=== PATIENT | female | born 1950 | race Caucasian/White ===

== ENCOUNTER 2024-01-21 16:12 | Inpatient (IN) | payer BC ==
[~2024-01-21] VITALS: Ht 157.5 cm; Wt 62.6 kg
[2024-01-21] MEDS: IV NORMAL SALINE 1000 ML BAG IV ONE (16:57)
[2024-01-21 17:19] LABS: BASOPHILS % (AUTO) 0.5 % (0.0-2.0); EOSINOPHILS % (AUTO) 0.1 % (0.0-7.0); HEMATOCRIT 34.7 % (31.2-41.9); HEMOGLOBIN 12.4 g/dL (10.9-14.3); LYMPHOCYTES # (AUTO) 0.2 K/uL (0.8-4.8); LYMPHOCYTES % (AUTO) 3.2 % (20.5-51.5); MEAN CORPUSCULAR HEMOGLOBIN 45.3 uug (24.7-32.8); MEAN CORPUSCULAR HGB CONC 36 g/dL (32.3-35.6); MONOCYTES # (AUTO) 0.7 K/uL (0.1-1.30); MONOCYTES % (AUTO) 12.4 % (0.0-11.0); NEUTROPHILS # (AUTO) 4.8 K/uL (1.8-8.9); NEUTROPHILS % (AUTO) 83.8 % (38.5-71.5); PLATELET COUNT (AUTO) 136 K/uL (179-408); RED BLOOD CELL COUNT(AUTO) 2.74 MIL/uL (3.63-4.92); RED CELL DISTRIBUTION WIDTH 13.9 % (12.3-17.7); WHITE BLOOD COUNT (AUTO) 5.8 K/uL (3.8-11.8)
[2024-01-21 17:25] LABS: DIFFERENTIAL COMMENT 1
[2024-01-21 17:29] LABS: CHLORIDE 83 mmol/L (98-107); POTASSIUM 3.5 mmol/L (3.5-5.1); SODIUM SERUM 119 mmol/L (136-145)
[2024-01-21 17:30] LABS: ALKALINE PHOSPHATASE 74 U/L (50-136); ASPARTATE AMINOTRANSFERASE 103 U/L (15-37); BILIRUBIN,DIRECT 0.6 mg/dL (0.0-0.2); BILIRUBIN,TOTAL 1.4 mg/dL (0.2-1.0); CALCIUM 8.2 mg/dL (8.5-10.1); CARBON DIOXIDE 25 mmol/L (21-32); CREATININE 0.5 mg/dL (0.6-1.3); GLUCOSE 106 mg/dL (74-106); UREA NITROGEN, BLOOD 9 mg/dL (7-18)
[2024-01-21] MEDS: PIPERACILLIN SODIUM/TAZOBACTAM 3.375 G in IV DEXTROSE 5% 50 ML IV ONE (17:30)
[2024-01-21 17:31] LABS: ALANINE AMINOTRANSFERASE 40 U/L (14-59); TOTAL PROTEIN, SERUM 5.7 g/dL (6.4-8.2)
[2024-01-21] MEDS ORDERED: PIPERACILLIN/TAZOBACTAM/D5W 50 ML IV ONE (17:34)
[2024-01-21] MEDS ORDERED: VANCOMYCIN IV 200 ML ONE (17:34)
[2024-01-21] MEDS: VANCOMYCIN IV 1,000 MG in IV DEXTROSE 5% 250 ML IV ONE (18:30)
[2024-01-21 20:30] VITALS: BP 116/65; TEMP 98.3; O2SAT 99
[2024-01-21] MEDS ORDERED: ONDANSETRON 4 MG/2 ML VIAL IV PRN (21:00)
[2024-01-21] MEDS ORDERED: MAGNESIUM HYDROXIDE 30 ML LIQUID UDC PO PRN (21:00)
[2024-01-21] MEDS ORDERED: REMEDY ESSENTIAL ZINC PASTE 113 GM TP PRN (21:00)
[2024-01-21] MEDS: ENOXAPARIN SODIUM 40 MG/0.4 ML DISP.SYRIN SQ SCH (21:47)
[2024-01-21] MEDS: IV NS 1000 ML 1,000 ML IV PRN (21:56)
[2024-01-21] MEDS: ASPIRIN 325 MG TABLET PO SCH (22:54)
[2024-01-22] VITALS: BP 129/48; TEMP 98.3; O2SAT 99
[2024-01-22] MEDS ORDERED: CIPR-262 PO (02:21)
[2024-01-22 03:30] LABS: *BILIRUBIN,URIN NEGATIVE (NEGATIVE); *BLOOD, URINE NEGATIVE (NEGATIVE); *CLARITY,URINE CLEAR (CLEAR); *COLOR,URINE YELLOW (YELLOW); *KETONES,URINE 3+ (NEGATIVE); *PROTEIN,URINE 1+ (NEGATIVE); *UROBILINOGEN,URINE 0.2 E.U./dl (NORMAL); LEUKOCYTE ESTERASE ,URINE NEGATIVE (NEGATIVE); NITRITE, URINE NEGATIVE (NEGATIVE); UGLUCOSE NEGATIVE (NEGATIVE)
[2024-01-22 03:50] LABS: BACTERIA,URINE FEW /HPF (NONE SEEN); RBC,URINE 0-3 /HPF (0-3); SQUAMOUS EPITHELIAL CELL,UR FEW /HPF (NONE SEEN); WBC,URINE 0-3 /HPF (0-3)
[2024-01-22 04:02] VITALS: BP 91/52; TEMP 98.2; O2SAT 99
[2024-01-22] MEDS: PANTOPRAZOLE SODIUM 40 MG TABLET.DR PO SCH (06:22)
[2024-01-22 07:25] VITALS: BP 109/62; TEMP 97.7; O2SAT 96
[2024-01-22 07:33] LABS: BASOPHILS % (AUTO) 0.5 % (0.0-2.0); HEMATOCRIT 31.1 % (31.2-41.9); HEMOGLOBIN 11.1 g/dL (10.9-14.3); LYMPHOCYTES # (AUTO) 0.2 K/uL (0.8-4.8); LYMPHOCYTES % (AUTO) 3.6 % (20.5-51.5); MEAN CORPUSCULAR HEMOGLOBIN 45.7 uug (24.7-32.8); MEAN CORPUSCULAR HGB CONC 36 g/dL (32.3-35.6); MEAN CORPUSCULAR VOLUME 127.7 fL (75.5-95.3); MONOCYTES # (AUTO) 0.5 K/uL (0.1-1.30); MONOCYTES % (AUTO) 10.5 % (0.0-11.0); NEUTROPHILS # (AUTO) 3.9 K/uL (1.8-8.9); NEUTROPHILS % (AUTO) 84.4 % (38.5-71.5); PLATELET COUNT (AUTO) 112 K/uL (179-408); RED CELL DISTRIBUTION WIDTH 14.2 % (12.3-17.7); WHITE BLOOD COUNT (AUTO) 4.6 K/uL (3.8-11.8)
[2024-01-22 07:40] LABS: CALCIUM 7.4 mg/dL (8.5-10.1); CARBON DIOXIDE 25 mmol/L (21-32); CHLORIDE 87 mmol/L (98-107); CHOLESTEROL 175 mg/dL (<200); CREATININE 0.5 mg/dL (0.6-1.3); GLUCOSE 96 mg/dL (74-106); HDL CHOLESTEROL 80 mg/dL (40-60); MAGNESIUM 1.8 mg/dL (1.8-2.4); PHOSPHOROUS 2.2 mg/dL (2.5-4.9); POTASSIUM 3.1 mmol/L (3.5-5.1); TRIGLYCERIDES 58 MG/DL (30-150); UREA NITROGEN, BLOOD 8 mg/dL (7-18)
[2024-01-22 07:49] LABS: SODIUM SERUM 119 mmol/L (136-145)
[2024-01-22 07:56] LABS: DIFFERENTIAL COMMENT 1; RED BLOOD CELL COUNT(AUTO) 2.44 MIL/uL (3.63-4.92)
[2024-01-22 08:26] LABS: CREATINE KINASE, TOTAL 1685 U/L (26-192)
[2024-01-22] MEDS: ASPIRIN 81 MG TAB.CHEW PO SCH (08:35)
[2024-01-22 08:40] LABS: THYROID STIMULATING HORMONE 2.252 mIU/mL (0.358-3.740)
[2024-01-22] MEDS: POTASSIUM CHLORIDE 20 MEQ TAB.PRT.SR PO ONE (10:22)
[2024-01-22] MEDS: NEUTRA PHOS PACKET PO ONE (10:22)
[2024-01-22] MEDS: IV SODIUM CHLORIDE 3% 500 ML IV ONE (10:31)
[2024-01-22] MEDS ORDERED: SULF1TAB48 PO (11:37)
[2024-01-22 11:39] VITALS: BP 124/70; TEMP 97.9; O2SAT 96
[2024-01-22 12:28] LABS: *SODIUM RNDM,URINE 81 mmol/L (40-220)
[2024-01-22] MEDS: VANCOMYCIN IV 1,000 MG in IV DEXTROSE 5% 250 ML IV SCH (13:23)
[2024-01-22] MEDS: ARGININE/GLUTAMINE/CALCIUM BMB 1 EACH POWD.PACK PO SCH (15:21)
[2024-01-22 15:41] VITALS: BP 122/73; TEMP 98.3; O2SAT 95
[2024-01-22 17:08] LABS: CALCIUM 7.5 mg/dL (8.5-10.1); CARBON DIOXIDE 25 mmol/L (21-32); CHLORIDE 93 mmol/L (98-107); CREATININE 0.5 mg/dL (0.6-1.3); GLUCOSE 151 mg/dL (74-106); POTASSIUM 3.2 mmol/L (3.5-5.1); SODIUM SERUM 126 mmol/L (136-145); UREA NITROGEN, BLOOD 9 mg/dL (7-18)
[2024-01-22 20:00] VITALS: BP 102/69; TEMP 98.3; O2SAT 98
[2024-01-22] MEDS: ACETAMINOPHEN 325 MG TABLET PO PRN (20:55)
[2024-01-23] VITALS (8 sets, daily range): BP systolic 80–133; BP diastolic 44–85; TEMP 97.4–98.5; O2SAT 95–99
[2024-01-23] MEDS ORDERED: IV NS 1000 ML 1,000 ML IV PRN ×2 (01:35→01:45)
[2024-01-23] MEDS: MIDODRINE HCL 5 MG TABLET PO STA (01:52)
[2024-01-23] MEDS: IV NS 1000 ML 1,000 ML IV ONE (02:00)
[2024-01-23] MEDS: IV NS 1000 ML 1,000 ML IV PRN (03:08)
[2024-01-23 07:00] LABS: BASOPHILS # (AUTO) 0.1 K/UL (0.0-0.2); BASOPHILS % (AUTO) 2.1 % (0.0-2.0); EOSINOPHILS % (AUTO) 1.4 % (0.0-7.0); HEMATOCRIT 28.9 % (31.2-41.9); HEMOGLOBIN 10.3 g/dL (10.9-14.3); LYMPHOCYTES # (AUTO) 0.2 K/uL (0.8-4.8); LYMPHOCYTES % (AUTO) 5.5 % (20.5-51.5); MEAN CORPUSCULAR HGB CONC 36 g/dL (32.3-35.6); MEAN CORPUSCULAR VOLUME 128.5 fL (75.5-95.3); MONOCYTES # (AUTO) 0.5 K/uL (0.1-1.30); MONOCYTES % (AUTO) 14.3 % (0.0-11.0); NEUTROPHILS # (AUTO) 2.6 K/uL (1.8-8.9); NEUTROPHILS % (AUTO) 76.7 % (38.5-71.5); PLATELET COUNT (AUTO) 113 K/uL (179-408); RED CELL DISTRIBUTION WIDTH 14.1 % (12.3-17.7); WHITE BLOOD COUNT (AUTO) 3.4 K/uL (3.8-11.8)
[2024-01-23 07:10] LABS: DIFFERENTIAL COMMENT 1; RED BLOOD CELL COUNT(AUTO) 2.25 MIL/uL (3.63-4.92)
[2024-01-23 07:13] LABS: CALCIUM 7.4 mg/dL (8.5-10.1); CARBON DIOXIDE 26 mmol/L (21-32); CHLORIDE 97 mmol/L (98-107); CREATININE 0.4 mg/dL (0.6-1.3); GLUCOSE 111 mg/dL (74-106); MAGNESIUM 1.9 mg/dL (1.8-2.4); PHOSPHOROUS 1.6 mg/dL (2.5-4.9); POTASSIUM 3.1 mmol/L (3.5-5.1); SODIUM SERUM 128 mmol/L (136-145); UREA NITROGEN, BLOOD 12 mg/dL (7-18)
[2024-01-23 07:28] LABS: THYROID STIMULATING HORMONE 3.462 mIU/mL (0.358-3.740)
[2024-01-23 08:21] LABS: MAGNESIUM 1.8 mg/dL (1.8-2.4); PHOSPHOROUS 1.5 mg/dL (2.5-4.9); URIC ACID 1.9 mg/dL (2.6-6.0)
[2024-01-23] MEDS: POTASSIUM CHLORIDE 20 MEQ POWDER PACKET PO ONE (09:49)
[2024-01-23] MEDS: HYDROCODONE/APAP 5-325MG TABLET PO PRN (09:51)
[2024-01-23] MEDS: POTASSIUM PHOSPHATE MM 15 MMOL in IV NORMAL SALINE 250 ML IV ONE (09:54)
[2024-01-23] MEDS: MIDODRINE HCL 5 MG TABLET PO SCH (13:51)
[2024-01-24 06:41] LABS: BASOPHILS # (AUTO) 0.1 K/UL (0.0-0.2); BASOPHILS % (AUTO) 2.2 % (0.0-2.0); EOSINOPHILS # (AUTO) 0.1 K/uL (0.0-0.7); EOSINOPHILS % (AUTO) 3.3 % (0.0-7.0); HEMATOCRIT 28.8 % (31.2-41.9); HEMOGLOBIN 10.2 g/dL (10.9-14.3); LYMPHOCYTES # (AUTO) 0.3 K/uL (0.8-4.8); MEAN CORPUSCULAR HEMOGLOBIN 45.4 uug (24.7-32.8); MEAN CORPUSCULAR HGB CONC 36 g/dL (32.3-35.6); MEAN CORPUSCULAR VOLUME 127.7 fL (75.5-95.3); MONOCYTES # (AUTO) 0.7 K/uL (0.1-1.30); MONOCYTES % (AUTO) 17.3 % (0.0-11.0); NEUTROPHILS # (AUTO) 2.6 K/uL (1.8-8.9); NEUTROPHILS % (AUTO) 68.2 % (38.5-71.5); PLATELET COUNT (AUTO) 115 K/uL (179-408); RED CELL DISTRIBUTION WIDTH 14.2 % (12.3-17.7); WHITE BLOOD COUNT (AUTO) 3.9 K/uL (3.8-11.8)
[2024-01-24 06:55] LABS: DIFFERENTIAL COMMENT 1; RED BLOOD CELL COUNT(AUTO) 2.26 MIL/uL (3.63-4.92)
[2024-01-24 06:57] LABS: CALCIUM 7.1 mg/dL (8.5-10.1); CARBON DIOXIDE 24 mmol/L (21-32); CHLORIDE 98 mmol/L (98-107); CREATININE 0.5 mg/dL (0.6-1.3); GLUCOSE 97 mg/dL (74-106); MAGNESIUM 1.5 mg/dL (1.8-2.4); PHOSPHOROUS 1.5 mg/dL (2.5-4.9); POTASSIUM 3.6 mmol/L (3.5-5.1); SODIUM SERUM 128 mmol/L (136-145); UREA NITROGEN, BLOOD 12 mg/dL (7-18)
[2024-01-24 07:06] VITALS: BP 93/69; TEMP 98.7; O2SAT 98
[2024-01-24] MEDS: MAGNESIUM SULFATE/D5W 100 ML IV SCH (08:48)
[2024-01-24 11:51] VITALS: BP 99/54; TEMP 97.4; O2SAT 97
[2024-01-24] MEDS: ENSURE ENLIVE (VAN) 240 ML LIQUID PO SCH (12:20)
[2024-01-24] MEDS: VANCOMYCIN IV 1,000 MG in IV DEXTROSE 5% 250 ML IV SCH (13:18)
[2024-01-24 16:26] VITALS: BP 105/88; TEMP 98.4; O2SAT 92
[2024-01-24 16:32] LABS: BAND % (MANUAL) 1 % (0-10); EOSINOPHILS % (MANUAL) 3 % (0-8); LYMPHOCYTES % (MANUAL) 10 % (20-40); MONOCYTES % (MANUAL) 18 % (2-10); NEUTROPHILS % (MANUAL) 68 % (42-75); PLATELET ESTIMATE DECREASED
[2024-01-24 16:33] LABS: ANISOCYTOSIS 1+
[2024-01-24] MEDS: POTASSIUM PHOSPHATE MM 15 MMOL in IV NORMAL SALINE 250 ML IV ONE (17:24)
[2024-01-24 20:54] VITALS: BP 129/80; TEMP 97.8; O2SAT 97
[2024-01-25 06:22] VITALS: BP 98/58; TEMP 97.7; O2SAT 98
[2024-01-25 06:41] LABS: BASOPHILS # (AUTO) 0.1 K/UL (0.0-0.2); BASOPHILS % (AUTO) 2.5 % (0.0-2.0); EOSINOPHILS # (AUTO) 0.2 K/uL (0.0-0.7); EOSINOPHILS % (AUTO) 3.4 % (0.0-7.0); HEMATOCRIT 29.5 % (31.2-41.9); HEMOGLOBIN 10.3 g/dL (10.9-14.3); LYMPHOCYTES # (AUTO) 0.6 K/uL (0.8-4.8); LYMPHOCYTES % (AUTO) 13.5 % (20.5-51.5); MEAN CORPUSCULAR HEMOGLOBIN 44.8 uug (24.7-32.8); MEAN CORPUSCULAR HGB CONC 35 g/dL (32.3-35.6); MEAN CORPUSCULAR VOLUME 128.5 fL (75.5-95.3); MONOCYTES # (AUTO) 1.2 K/uL (0.1-1.30); MONOCYTES % (AUTO) 24.7 % (0.0-11.0); NEUTROPHILS # (AUTO) 2.6 K/uL (1.8-8.9); NEUTROPHILS % (AUTO) 55.9 % (38.5-71.5); PLATELET COUNT (AUTO) 139 K/uL (179-408); RED CELL DISTRIBUTION WIDTH 14.7 % (12.3-17.7); WHITE BLOOD COUNT (AUTO) 4.7 K/uL (3.8-11.8)
[2024-01-25 06:54] LABS: DIFFERENTIAL COMMENT 1
[2024-01-25 07:18] LABS: CARBON DIOXIDE 24 mmol/L (21-32); CHLORIDE 97 mmol/L (98-107); CREATININE 0.5 mg/dL (0.6-1.3); GLUCOSE 108 mg/dL (74-106); MAGNESIUM 2.5 mg/dL (1.8-2.4); PHOSPHOROUS 2.1 mg/dL (2.5-4.9); POTASSIUM 3.7 mmol/L (3.5-5.1); SODIUM SERUM 126 mmol/L (136-145); UREA NITROGEN, BLOOD 15 mg/dL (7-18)
[2024-01-25 07:27] LABS: CALCIUM 7.5 mg/dL (8.5-10.1)
[2024-01-25 08:00] VITALS: BP 84/57; TEMP 97.9
[2024-01-25 08:49] LABS: ANISOCYTOSIS 1+; EOSINOPHILS % (MANUAL) 3 % (0-8); LYMPHOCYTES % (MANUAL) 14 % (20-40); MONOCYTES % (MANUAL) 17 % (2-10); NEUTROPHILS % (MANUAL) 66 % (42-75); PLATELET ESTIMATE DECREASED
[2024-01-25] MEDS: POTASSIUM PHOSPHATE MM 15 MMOL in IV NORMAL SALINE 250 ML IV ONE (10:06)
[2024-01-25 12:10] VITALS: BP 89/52; TEMP 97.6; O2SAT 95
[2024-01-25 16:22] VITALS: BP 107/75; TEMP 97.6; O2SAT 100
[2024-01-25 20:09] VITALS: BP 108/55; TEMP 98.2; O2SAT 97
[2024-01-26 08:00] VITALS: BP 99/54; TEMP 97.9; O2SAT 94
[2024-01-26 11:10] VITALS: BP 109/71; TEMP 98.7; O2SAT 97
[2024-01-26] MEDS: FUROSEMIDE 20 MG/2 ML VIAL IV ONE (13:02)
[2024-01-26 15:09] VITALS: BP 109/69; TEMP 98.4; O2SAT 97
[2024-01-26 20:00] VITALS: BP 102/65; TEMP 97.5; O2SAT 95
[2024-01-26] MEDS: DOXYCYCLINE HYCLATE 100 MG TABLET PO SCH (20:06)
[2024-01-27 06:00] VITALS: BP 101/65; TEMP 97.8; O2SAT 96
[2024-01-27 07:06] LABS: BASOPHILS # (AUTO) 0.2 K/UL (0.0-0.2); BASOPHILS % (AUTO) 3.2 % (0.0-2.0); EOSINOPHILS # (AUTO) 0.2 K/uL (0.0-0.7); EOSINOPHILS % (AUTO) 3.9 % (0.0-7.0); HEMATOCRIT 28.6 % (31.2-41.9); HEMOGLOBIN 10.1 g/dL (10.9-14.3); LYMPHOCYTES # (AUTO) 0.8 K/uL (0.8-4.8); LYMPHOCYTES % (AUTO) 13.4 % (20.5-51.5); MEAN CORPUSCULAR HEMOGLOBIN 44.7 uug (24.7-32.8); MEAN CORPUSCULAR HGB CONC 35 g/dL (32.3-35.6); MEAN CORPUSCULAR VOLUME 126.7 fL (75.5-95.3); MONOCYTES # (AUTO) 1.3 K/uL (0.1-1.30); MONOCYTES % (AUTO) 23.2 % (0.0-11.0); NEUTROPHILS # (AUTO) 3.2 K/uL (1.8-8.9); NEUTROPHILS % (AUTO) 56.3 % (38.5-71.5); PLATELET COUNT (AUTO) 233 K/uL (179-408); RED CELL DISTRIBUTION WIDTH 15.1 % (12.3-17.7); WHITE BLOOD COUNT (AUTO) 5.7 K/uL (3.8-11.8)
[2024-01-27 07:08] LABS: ALANINE AMINOTRANSFERASE 26 U/L (14-59); ALKALINE PHOSPHATASE 96 U/L (50-136); ASPARTATE AMINOTRANSFERASE 15 U/L (15-37); BILIRUBIN,TOTAL 0.5 mg/dL (0.2-1.0); CALCIUM 8.3 mg/dL (8.5-10.1); CARBON DIOXIDE 32 mmol/L (21-32); CHLORIDE 96 mmol/L (98-107); CREATININE 0.5 mg/dL (0.6-1.3); GLUCOSE 105 mg/dL (74-106); PHOSPHOROUS 3.2 mg/dL (2.5-4.9); POTASSIUM 3.7 mmol/L (3.5-5.1); SODIUM SERUM 129 mmol/L (136-145); TOTAL PROTEIN, SERUM 4.4 g/dL (6.4-8.2); UREA NITROGEN, BLOOD 15 mg/dL (7-18)
[2024-01-27 07:37] LABS: DIFFERENTIAL COMMENT 1; RED BLOOD CELL COUNT(AUTO) 2.26 MIL/uL (3.63-4.92)
[2024-01-27 11:36] VITALS: BP 99/64; TEMP 97.8; O2SAT 98
[2024-01-27 15:52] VITALS: BP 125/74; TEMP 98.1; O2SAT 99
[2024-01-27 17:34] LABS: BASOPHILS % (MANUAL) 2 % (0-2); EOSINOPHILS % (MANUAL) 3 % (0-8); LYMPHOCYTES % (MANUAL) 15 % (20-40); MONOCYTES % (MANUAL) 25 % (2-10); NEUTROPHILS % (MANUAL) 55 % (42-75)
[2024-01-27 20:00] VITALS: BP 121/72; TEMP 97.9; O2SAT 97
[2024-01-28 12:08] VITALS: BP 112/69; TEMP 97.7; O2SAT 97
[2024-01-28 16:56] VITALS: BP 123/79; TEMP 98.2; O2SAT 95
[2024-01-28 17:05] VITALS: BP 123/79
[2024-01-28] MEDS ORDERED: PANT40TA49 PO (21:56)
[2024-01-28] MEDS ORDERED: HYDR-4676 PO (21:56)
[2024-01-28] MEDS ORDERED: ENOX40DI SQ (21:56)
[2024-01-28] MEDS ORDERED: DOXY-226 PO (21:56)
[2024-01-28] MEDS ORDERED: ACET-3117 PO (21:56)
[2024-01-28] MEDS ORDERED: HYDR-3972 PO (21:56)
[2024-01-28] MEDS ORDERED: LACT-246 PO (21:56)
[2024-01-28] MEDS ORDERED: MIDO10TA PO (21:56)
[2024-01-28] MEDS ORDERED: MAGN400O6 PO (21:56)
[2024-01-28] MEDS ORDERED: ASPI-495 PO (21:56)
[2024-01-28] MEDS ORDERED: ARGI500T4 PO (21:56)
[2024-01-29] MEDS ORDERED: ZINC113P3 TP (10:45)
== END 2024-01-28 17:50 | DRG 643 ==
LOC: ER 16:13 → TELE3 19:53 → MEDSURG3 01-23 10:04
PROVIDERS: ADMIT Nurse Practitioner Acute Care; ATTEND Nurse Practitioner Acute Care
PROC: 0HBRXZZ Excision of Toe Nail, External Approach (ICD-10-PCS; principal; 2024-01-28)
DX: E22.2 Syndrome of inappropriate secretion of antidiuretic hormone (principal); I21.4 Non-ST elevation (NSTEMI) myocardial infarction; M62.82 Rhabdomyolysis; L97.818 Non-pressure chronic ulcer of other part of right lower leg with other specified severity; L03.115 Cellulitis of right lower limb; M84.58XA Pathological fracture in neoplastic disease, other specified site, initial encounter for fracture; C79.51 Secondary malignant neoplasm of bone; C78.7 Secondary malignant neoplasm of liver and intrahepatic bile duct; R17 Unspecified jaundice; Z96.642 Presence of left artificial hip joint; M50.323 Other cervical disc degeneration at C6-C7 level; E86.0 Dehydration; E88.09 Other disorders of plasma-protein metabolism, not elsewhere classified; I87.2 Venous insufficiency (chronic) (peripheral); I95.9 Hypotension, unspecified; D69.6 Thrombocytopenia, unspecified; Z95.0 Presence of cardiac pacemaker; Z85.3 Personal history of malignant neoplasm of breast; D75.89 Other specified diseases of blood and blood-forming organs; M43.12 Spondylolisthesis, cervical region; B35.1 Tinea unguium
CPT/HCPCS: 36415; 70030-TC; 70450; 71045; 72125; 72170; 73630; 83735; 84100; 84300; 84443; 84484; 84550; 85025; 85651; 85730; 86140; 87040; 93005; 93307; A4606; A4663; A6213; C1758; G0378; J1650; J1940; J2405; J2543; J3370; J3475; J3490; J7040; J7050

== ENCOUNTER 2024-01-28 17:51 | Inpatient (IN) | payer BC, OTHER ==
[~2024-01-28] VITALS: Ht 157.5 cm; Wt 62.6 kg
[~2024-01-28 17:51] MED LIST: SULF1TAB48 PO
[2024-01-28] MEDS ORDERED: REMEDY ESSENTIAL ZINC PASTE 113 GM TOP PRN (20:15)
[2024-01-28] MEDS ORDERED: PANT40TA49 PO (21:56)
[2024-01-28] MEDS ORDERED: HYDR-4676 PO (21:56)
[2024-01-28] MEDS ORDERED: DOXY-226 PO (21:56)
[2024-01-28] MEDS ORDERED: HYDR-3972 PO (21:56)
[2024-01-28] MEDS ORDERED: ASPI-495 PO (21:56)
[2024-01-28] MEDS ORDERED: MIDO10TA PO (21:56)
[2024-01-28] MEDS ORDERED: ARGI500T4 PO (21:56)
[2024-01-28] MEDS ORDERED: ACET-3117 PO (21:56)
[2024-01-28] MEDS ORDERED: MAGN400O6 PO (21:56)
[2024-01-28] MEDS ORDERED: ENOX40DI SQ (21:56)
[2024-01-28] MEDS ORDERED: LACT-246 PO (21:56)
[2024-01-28] MEDS ORDERED: MAGNESIUM HYDROXIDE 30 ML LIQUID UDC PO PRN (23:00)
[2024-01-28] MEDS ORDERED: HYDROCODONE/APAP 5-325MG TABLET PO PRN (23:00)
[2024-01-29] MEDS: ACETAMINOPHEN 325 MG TABLET PO PRN (03:36)
[2024-01-29 06:00] VITALS: BP 110/77; TEMP 97.7; O2SAT 98
[2024-01-29] MEDS: PANTOPRAZOLE SODIUM 40 MG TABLET.DR PO SCH (06:12)
[2024-01-29] MEDS: ENSURE WITH FIBER 237 ML LIQUID (CHOCOLATE) PO SCH (09:29)
[2024-01-29] MEDS: DOXYCYCLINE HYCLATE 100 MG TABLET PO SCH (09:30)
[2024-01-29] MEDS: MIDODRINE HCL 5 MG TABLET PO SCH (09:30)
[2024-01-29] MEDS: ASPIRIN EC 81 MG TABLET.DR PO SCH (09:30)
[2024-01-29] MEDS: ENOXAPARIN SODIUM 40 MG/0.4 ML DISP.SYRIN SQ SCH (09:32)
[2024-01-29] MEDS ORDERED: ZINC113P3 TP (10:45)
[2024-01-29 14:54] VITALS: BP 105/69; TEMP 98; O2SAT 96
[2024-01-29 20:25] VITALS: BP 109/76; TEMP 98.4; O2SAT 96
[2024-01-30 06:20] VITALS: BP 116/83; TEMP 97.7; O2SAT 93
[2024-01-30 07:58] LABS: ALANINE AMINOTRANSFERASE 21 U/L (14-59); ALBUMIN 2.2 g/dL (3.4-5.0); ALKALINE PHOSPHATASE 86 U/L (50-136); ASPARTATE AMINOTRANSFERASE 19 U/L (15-37); BILIRUBIN,TOTAL 0.3 mg/dL (0.2-1.0); CALCIUM 8.3 mg/dL (8.5-10.1); CARBON DIOXIDE 35 mmol/L (21-32); CHLORIDE 99 mmol/L (98-107); CREATININE 0.5 mg/dL (0.6-1.3); GLUCOSE 99 mg/dL (74-106); PHOSPHOROUS 3.5 mg/dL (2.5-4.9); POTASSIUM 3.4 mmol/L (3.5-5.1); SODIUM SERUM 136 mmol/L (136-145); TOTAL PROTEIN, SERUM 4.7 g/dL (6.4-8.2); UREA NITROGEN, BLOOD 9 mg/dL (7-18)
[2024-01-30 08:06] LABS: BASOPHILS # (AUTO) 0.1 K/UL (0.0-0.2); BASOPHILS % (AUTO) 2.2 % (0.0-2.0); EOSINOPHILS # (AUTO) 0.1 K/uL (0.0-0.7); EOSINOPHILS % (AUTO) 2.3 % (0.0-7.0); HEMATOCRIT 29.6 % (31.2-41.9); HEMOGLOBIN 10.4 g/dL (10.9-14.3); LYMPHOCYTES % (AUTO) 15.8 % (20.5-51.5); MEAN CORPUSCULAR HEMOGLOBIN 44.3 uug (24.7-32.8); MEAN CORPUSCULAR HGB CONC 35 g/dL (32.3-35.6); MEAN CORPUSCULAR VOLUME 126.4 fL (75.5-95.3); MONOCYTES # (AUTO) 1.2 K/uL (0.1-1.30); MONOCYTES % (AUTO) 19.2 % (0.0-11.0); NEUTROPHILS # (AUTO) 3.7 K/uL (1.8-8.9); NEUTROPHILS % (AUTO) 60.5 % (38.5-71.5); PLATELET COUNT (AUTO) 379 K/uL (179-408); RED CELL DISTRIBUTION WIDTH 15.2 % (12.3-17.7); WHITE BLOOD COUNT (AUTO) 6.1 K/uL (3.8-11.8)
[2024-01-30 08:18] LABS: RED BLOOD CELL COUNT(AUTO) 2.34 MIL/uL (3.63-4.92)
[2024-01-30 08:19] LABS: DIFFERENTIAL COMMENT 1
[2024-01-30] MEDS: POTASSIUM CHLORIDE 20 MEQ TAB.PRT.SR PO ONE (09:30)
[2024-01-30 15:20] LABS: BAND % (MANUAL) 2 % (0-10); LYMPHOCYTES % (MANUAL) 18 % (20-40); METAMYELOCYTES % 1 % (0-1); MONOCYTES % (MANUAL) 19 % (2-10); NEUTROPHILS % (MANUAL) 60 % (42-75); PLATELET ESTIMATE ADEQUATE
[2024-01-30 15:21] LABS: ANISOCYTOSIS 1+
[2024-01-30 16:04] VITALS: BP 114/78; TEMP 98; O2SAT 99
[2024-01-30 20:28] VITALS: BP 119/69; TEMP 98.4; O2SAT 94
[2024-01-31 06:00] VITALS: BP 120/89; TEMP 97.6; O2SAT 93
[2024-01-31 12:00] VITALS: BP 109/78; TEMP 98.5; O2SAT 97
[2024-01-31 16:04] VITALS: BP 120/84; TEMP 97; O2SAT 97
[2024-01-31 20:00] VITALS: BP 128/71; TEMP 98.2; O2SAT 96
[2024-02-01 06:00] VITALS: BP 116/78; TEMP 98.4; O2SAT 96
[2024-02-01 15:33] VITALS: BP 96/63; TEMP 98.5; O2SAT 96
[2024-02-01 18:11] VITALS: BP 105/65
[2024-02-01 20:00] VITALS: BP 109/68; TEMP 97.8; O2SAT 97
[2024-02-02 06:00] VITALS: BP 127/73; TEMP 97.6; O2SAT 96
[2024-02-02 06:14] LABS: *SODIUM RNDM,URINE 63 mmol/L (40-220)
[2024-02-02 07:37] LABS: ALANINE AMINOTRANSFERASE 15 U/L (14-59); ALBUMIN 2.2 g/dL (3.4-5.0); ALKALINE PHOSPHATASE 86 U/L (50-136); ASPARTATE AMINOTRANSFERASE 11 U/L (15-37); BILIRUBIN,TOTAL 0.4 mg/dL (0.2-1.0); CALCIUM 8.3 mg/dL (8.5-10.1); CARBON DIOXIDE 35 mmol/L (21-32); CHLORIDE 98 mmol/L (98-107); CREATININE 0.6 mg/dL (0.6-1.3); GLUCOSE 93 mg/dL (74-106); POTASSIUM 4.2 mmol/L (3.5-5.1); SODIUM SERUM 134 mmol/L (136-145); TOTAL PROTEIN, SERUM 4.8 g/dL (6.4-8.2); UREA NITROGEN, BLOOD 14 mg/dL (7-18)
[2024-02-02 16:27] VITALS: BP 124/67; TEMP 97.8; O2SAT 97
[2024-02-02 20:47] VITALS: BP 121/82; TEMP 97.8; O2SAT 98
[2024-02-03 05:21] VITALS: BP 126/69; TEMP 97.6; O2SAT 95
[2024-02-03 16:00] VITALS: BP 120/87; TEMP 97.7; O2SAT 98
[2024-02-03 20:19] VITALS: BP 131/74; TEMP 97.6; O2SAT 97
[2024-02-04 04:25] VITALS: BP 129/81; TEMP 97.5; O2SAT 97
[2024-02-04 06:49] LABS: BASOPHILS # (AUTO) 0.1 K/UL (0.0-0.2); BASOPHILS % (AUTO) 2.1 % (0.0-2.0); EOSINOPHILS # (AUTO) 0.1 K/uL (0.0-0.7); EOSINOPHILS % (AUTO) 2.7 % (0.0-7.0); HEMATOCRIT 33.6 % (31.2-41.9); HEMOGLOBIN 11.6 g/dL (10.9-14.3); LYMPHOCYTES # (AUTO) 0.9 K/uL (0.8-4.8); LYMPHOCYTES % (AUTO) 16.3 % (20.5-51.5); MEAN CORPUSCULAR HGB CONC 34 g/dL (32.3-35.6); MEAN CORPUSCULAR VOLUME 124.8 fL (75.5-95.3); MONOCYTES # (AUTO) 0.6 K/uL (0.1-1.30); MONOCYTES % (AUTO) 11.3 % (0.0-11.0); NEUTROPHILS # (AUTO) 3.6 K/uL (1.8-8.9); NEUTROPHILS % (AUTO) 67.6 % (38.5-71.5); PLATELET COUNT (AUTO) 400 K/uL (179-408); RED BLOOD CELL COUNT(AUTO) 2.69 MIL/uL (3.63-4.92); WHITE BLOOD COUNT (AUTO) 5.4 K/uL (3.8-11.8)
[2024-02-04 06:58] LABS: DIFFERENTIAL COMMENT 1
[2024-02-04 06:59] LABS: ALANINE AMINOTRANSFERASE 18 U/L (14-59); ALBUMIN 2.5 g/dL (3.4-5.0); ALKALINE PHOSPHATASE 103 U/L (50-136); ASPARTATE AMINOTRANSFERASE 13 U/L (15-37); BILIRUBIN,TOTAL 0.4 mg/dL (0.2-1.0); CALCIUM 8.6 mg/dL (8.5-10.1); CARBON DIOXIDE 34 mmol/L (21-32); CHLORIDE 99 mmol/L (98-107); CREATININE 0.7 mg/dL (0.6-1.3); GLUCOSE 94 mg/dL (74-106); MAGNESIUM 2.2 mg/dL (1.8-2.4); PHOSPHOROUS 4.2 mg/dL (2.5-4.9); POTASSIUM 4.2 mmol/L (3.5-5.1); SODIUM SERUM 136 mmol/L (136-145); TOTAL PROTEIN, SERUM 5.3 g/dL (6.4-8.2); UREA NITROGEN, BLOOD 10 mg/dL (7-18)
[2024-02-04 15:19] VITALS: BP 104/76; TEMP 97.8; O2SAT 97
[2024-02-04 20:10] VITALS: BP 107/80; TEMP 97.8; O2SAT 96
[2024-02-05 06:06] VITALS: BP 117/79; TEMP 97.7; O2SAT 99
[2024-02-05 15:22] VITALS: BP 135/78; TEMP 97.3; O2SAT 98
[2024-02-05 22:39] VITALS: BP 142/57; TEMP 97.7; O2SAT 97
[2024-02-06 06:00] VITALS: BP 116/77; TEMP 97.6; O2SAT 97
[2024-02-06 15:27] VITALS: BP 100/60; TEMP 97.7; O2SAT 99
[2024-02-06 20:24] VITALS: BP 106/61; TEMP 97.9; O2SAT 98
[2024-02-07 06:16] VITALS: BP 116/75; TEMP 97.3; O2SAT 96
[2024-02-07 16:00] VITALS: BP 132/72; TEMP 97.8; O2SAT 97
[2024-02-07 20:30] VITALS: BP 95/66; TEMP 97.9; O2SAT 99
[2024-02-08 06:32] VITALS: BP 125/78; TEMP 97.8; O2SAT 95
[2024-02-08 16:43] VITALS: BP 99/69; TEMP 97.8; O2SAT 96
[2024-02-08 20:35] VITALS: BP 106/64; TEMP 98.1; O2SAT 100
[2024-02-09 06:25] VITALS: BP 121/74; TEMP 98; O2SAT 94
[2024-02-09 15:10] VITALS: BP 100/69; TEMP 98.2; O2SAT 100
[2024-02-09 20:00] VITALS: BP 116/75; TEMP 97.8; O2SAT 94
[2024-02-10 09:10] VITALS: BP 127/65; TEMP 97.8; O2SAT 95
[2024-02-10 15:35] VITALS: BP 105/72; TEMP 97.5; O2SAT 98
[2024-02-10 21:17] VITALS: BP 101/67; TEMP 97.3; O2SAT 96
[2024-02-11 06:20] VITALS: BP 121/79; TEMP 97.6; O2SAT 96
[2024-02-11 07:48] LABS: BASOPHILS # (AUTO) 0.1 K/UL (0.0-0.2); BASOPHILS % (AUTO) 2.7 % (0.0-2.0); EOSINOPHILS # (AUTO) 0.1 K/uL (0.0-0.7); EOSINOPHILS % (AUTO) 2.5 % (0.0-7.0); HEMATOCRIT 34.4 % (31.2-41.9); HEMOGLOBIN 11.6 g/dL (10.9-14.3); LYMPHOCYTES # (AUTO) 0.6 K/uL (0.8-4.8); LYMPHOCYTES % (AUTO) 15.1 % (20.5-51.5); MEAN CORPUSCULAR HEMOGLOBIN 40.4 uug (24.7-32.8); MEAN CORPUSCULAR HGB CONC 34 g/dL (32.3-35.6); MONOCYTES # (AUTO) 0.5 K/uL (0.1-1.30); MONOCYTES % (AUTO) 12.7 % (0.0-11.0); NEUTROPHILS # (AUTO) 2.8 K/uL (1.8-8.9); PLATELET COUNT (AUTO) 270 K/uL (179-408); RED BLOOD CELL COUNT(AUTO) 2.87 MIL/uL (3.63-4.92); WHITE BLOOD COUNT (AUTO) 4.2 K/uL (3.8-11.8)
[2024-02-11 08:03] LABS: DIFFERENTIAL COMMENT 1
[2024-02-11 08:15] LABS: ALANINE AMINOTRANSFERASE 13 U/L (14-59); ALBUMIN 2.6 g/dL (3.4-5.0); ALKALINE PHOSPHATASE 92 U/L (50-136); ASPARTATE AMINOTRANSFERASE 12 U/L (15-37); BILIRUBIN,TOTAL 0.4 mg/dL (0.2-1.0); CALCIUM 8.7 mg/dL (8.5-10.1); CARBON DIOXIDE 33 mmol/L (21-32); CHLORIDE 102 mmol/L (98-107); CREATININE 0.6 mg/dL (0.6-1.3); GLUCOSE 97 mg/dL (74-106); MAGNESIUM 2.1 mg/dL (1.8-2.4); PHOSPHOROUS 4.2 mg/dL (2.5-4.9); POTASSIUM 4.2 mmol/L (3.5-5.1); SODIUM SERUM 138 mmol/L (136-145); TOTAL PROTEIN, SERUM 5.5 g/dL (6.4-8.2); UREA NITROGEN, BLOOD 13 mg/dL (7-18)
[2024-02-11 16:57] VITALS: BP 112/86; TEMP 97.8; O2SAT 97
[2024-02-12 15:47] VITALS: BP 120/74; TEMP 98.2; O2SAT 95
[2024-02-12 19:00] VITALS: BP 95/67; TEMP 97.2; O2SAT 92
[2024-02-13 06:00] VITALS: BP 122/81; TEMP 97.7; O2SAT 94
[2024-02-13 16:33] VITALS: BP 120/79; TEMP 98.5; O2SAT 94
[2024-02-13 19:00] VITALS: BP 109/78; TEMP 97.9; O2SAT 94
[2024-02-14 06:00] VITALS: BP 117/84; TEMP 97.4; O2SAT 95
[2024-02-14 16:18] VITALS: BP 106/74; TEMP 97.8; O2SAT 98
[2024-02-14 20:58] VITALS: BP 120/72; TEMP 97.7; O2SAT 96
[2024-02-15 04:00] VITALS: BP 120/88; TEMP 97.6; O2SAT 96
[2024-02-15 16:25] VITALS: BP 121/86; TEMP 97.9; O2SAT 96
[2024-02-15 20:00] VITALS: BP 127/77; TEMP 97.4
[2024-02-16 06:59] VITALS: BP 132/93; TEMP 98; O2SAT 96
[2024-02-16 16:34] VITALS: BP 127/84; TEMP 98.1; O2SAT 96
[2024-02-16 20:00] VITALS: BP 119/75; TEMP 97.7
[2024-02-17 15:19] VITALS: BP 123/67; TEMP 98.4; O2SAT 93
[2024-02-17 20:17] VITALS: BP 109/70; TEMP 98.5; O2SAT 95
[2024-02-18 04:11] VITALS: BP 121/88; TEMP 98.4; O2SAT 94
[2024-02-18 16:33] VITALS: BP 119/77; TEMP 98.6; O2SAT 95
[2024-02-18 20:00] VITALS: BP 106/69; TEMP 98.1; O2SAT 96
[2024-02-19 06:17] VITALS: BP 128/80; TEMP 97.9; O2SAT 94
[2024-02-19 16:45] VITALS: BP 124/76; TEMP 97.9; O2SAT 96
[2024-02-19 19:56] VITALS: BP 105/64; TEMP 97.8; O2SAT 96
[2024-02-20 05:48] VITALS: BP 130/87; TEMP 97.6; O2SAT 96
[2024-02-20 16:36] VITALS: BP 104/70; TEMP 97.6; O2SAT 99
[2024-02-20 20:56] VITALS: BP 116/77; TEMP 97.6; O2SAT 96
[2024-02-21 04:30] VITALS: BP 127/79; TEMP 97.7; O2SAT 96
[2024-02-21 15:58] VITALS: BP 103/67; TEMP 97.7
[2024-02-21 20:00] VITALS: BP 116/71; TEMP 98.2; O2SAT 94
[2024-02-22 06:00] VITALS: BP 105/80; TEMP 97.8; O2SAT 95
[2024-02-22 16:00] VITALS: BP 146/92; TEMP 98.6; O2SAT 95
[2024-02-22 20:00] VITALS: BP 108/67; TEMP 98.5; O2SAT 95
[2024-02-23 06:00] VITALS: BP 125/88; TEMP 97.7; O2SAT 93
[2024-02-23 16:48] VITALS: BP 110/67; TEMP 98.1; O2SAT 97
[2024-02-23 20:23] VITALS: BP 123/71; TEMP 97.9; O2SAT 93
[2024-02-24 04:00] VITALS: BP 115/79; TEMP 97.6; O2SAT 94
[2024-02-24 16:20] VITALS: BP 110/76; TEMP 97.8; O2SAT 98
[2024-02-24 20:09] VITALS: BP 108/71; TEMP 97.8; O2SAT 95
[2024-02-25 04:00] VITALS: BP 107/80; TEMP 97.8; O2SAT 95
[2024-02-25 15:52] VITALS: BP 95/69; TEMP 97.2; O2SAT 98
[2024-02-25 20:54] VITALS: TEMP 97.8
[2024-02-26 06:07] VITALS: TEMP 97.5
[2024-02-26 15:54] VITALS: BP 99/64; TEMP 97.7; O2SAT 95
[2024-02-26 19:00] VITALS: BP 98/65; TEMP 97.7; O2SAT 95
[2024-02-27 06:00] VITALS: BP 125/78; TEMP 97.9; O2SAT 94
[2024-02-27 16:02] VITALS: BP 128/79; TEMP 98.6; O2SAT 96
[2024-02-27 21:08] VITALS: BP 106/58; TEMP 97.9; O2SAT 95
[2024-02-28 08:13] VITALS: BP 117/82; TEMP 98.7; O2SAT 94
[2024-02-28 14:00] VITALS: BP 128/71; TEMP 97.9; O2SAT 93
[2024-02-28 19:00] VITALS: BP 104/63; TEMP 97.9; O2SAT 92
[2024-02-29 06:36] VITALS: BP 116/69; TEMP 97.9; O2SAT 95
[2024-02-29 16:00] VITALS: BP 106/57; TEMP 98; O2SAT 96
[2024-02-29 20:00] VITALS: BP 104/60; TEMP 97.8; O2SAT 93
[2024-03-01 04:51] VITALS: BP 120/80; TEMP 97.8; O2SAT 95
[2024-03-01 16:02] VITALS: BP 126/78; TEMP 98; O2SAT 97
[2024-03-01 21:34] VITALS: BP 115/67; TEMP 98; O2SAT 94
[2024-03-02 05:39] VITALS: BP 109/73; TEMP 97.6; O2SAT 93
[2024-03-02 11:51] VITALS: BP 120/63; TEMP 97.4; O2SAT 97
[2024-03-02 16:00] VITALS: BP 105/67; TEMP 97.5; O2SAT 96
[2024-03-02 20:00] VITALS: BP 97/60; TEMP 97.9; O2SAT 95
[2024-03-03 04:00] VITALS: BP 121/78; TEMP 98.3; O2SAT 93
[2024-03-03 11:57] VITALS: BP 101/60; TEMP 97.5; O2SAT 96
== END 2024-03-03 14:35 | disposition home or self-care (01) | DRG 602 ==
LOC: MEDSURG3 17:51
PROVIDERS: ADMIT Physical Medicine & Rehabilitation Pain Medicine; ATTEND Physical Medicine & Rehabilitation Pain Medicine
DX: L03.115 Cellulitis of right lower limb (principal); E43 Unspecified severe protein-calorie malnutrition; I21.A1 Myocardial infarction type 2; M62.82 Rhabdomyolysis; C79.51 Secondary malignant neoplasm of bone; C78.7 Secondary malignant neoplasm of liver and intrahepatic bile duct; D68.59 Other primary thrombophilia; E22.2 Syndrome of inappropriate secretion of antidiuretic hormone; L97.919 Non-pressure chronic ulcer of unspecified part of right lower leg with unspecified severity; D75.89 Other specified diseases of blood and blood-forming organs; S81.811D Laceration without foreign body, right lower leg, subsequent encounter; X58.XXXD Exposure to other specified factors, subsequent encounter; Z91.81 History of falling; Z85.3 Personal history of malignant neoplasm of breast; Y92.9 Unspecified place or not applicable; B35.1 Tinea unguium; D64.9 Anemia, unspecified; E87.6 Hypokalemia; G89.29 Other chronic pain; Z95.0 Presence of cardiac pacemaker; Z96.642 Presence of left artificial hip joint
CPT/HCPCS: 36415; 70030-TC; 83735; 84100; 84300; 85025; 97535-GO-CO; A4663; A6213; J1650